=== PATIENT | male | born 1965 ===

== ENCOUNTER 2017-04-11 19:38 | Observation (INO) | payer MEDICAID ==
[2017-04-11 20:22] VITALS: RESP 20
[2017-04-11 21:33] LABS: BASO # 0.1 K/uL (0.0-0.2); BASO % 0.8 % (0.0-2.0); EOS # 0.3 K/uL (0.0-0.7); EOS % 4.8 % (0.0-4.0); HEMATOCRIT 41.4 % (35.0-51.0); LYMPH % 29.7 % (20.0-40.0); MEAN CELL VOLUME 88.4 fL (80.0-94.0); MEAN CORPUSCULAR HEMOGLOBIN 28.9 pg (27.0-31.0); MEAN CORPUSCULAR HGB CONC 32.7 g/dL (33.0-37.0); MEAN PLATELET VOLUME 7.4 fL (7.2-11.7); MONO # 0.5 K/uL (0.0-0.8); MONO % 7.9 % (0.0-10.0); RED CELL DISTRIBUTION WIDTH 12.8 % (11.5-14.5); WHITE BLOOD COUNT 6.6 K/uL (4.8-10.8)
--- NOTE | 2017-04-11 21:38 | C.PDOC ---
History Of Present Illness 52 y/o male sent to the emergency room by Dr. Saul to rule out CVA. Patient reports he has been progressively getting weaker to right side of body over the last week. Patient notes he is right hand dominant. Patient states he has not been "walking right". Denies headache, shortness of breath, chest pain, or other associated symptoms. Chief Complaint (Nursing): High Blood Pressure History Per: Patient History/Exam Limitations: no limitations Onset/Duration Of Symptoms: Days Current Symptoms Are (Timing): Worse Associated Symptoms: Focal Weakness. denies: Chest Pain, Dyspnea, Dizziness, Blurred Vision, Headache Recent travel outside of the [place]: No Past Medical History Reviewed: Historical Data, Nursing Documentation, Vital Signs Vital Signs: Last Vital Signs Temp 98.1 F 04/11/17 20:17 Pulse 78 04/11/17 20:17 Resp 20 04/11/17 20:17 BP 145/104 H 04/11/17 20:17 Pulse Ox 97 04/11/17 21:58 - Medical History PMH: Asthma, HTN Family History: States: Unknown Family Hx - Social History Hx Tobacco Use: No Hx Alcohol Use: No Hx Substance Use: No - Immunization History Hx Tetanus Toxoid Vaccination: No Hx Influenza Vaccination: No Hx Pneumococcal Vaccination: No Review Of Systems Except As Marked, All Systems Reviewed And Found Negative. Constitutional: Negative for: Fever, Chills Cardiovascular: Negative for: Chest Pain, Palpitations Respiratory: Negative for: Shortness of Breath Gastrointestinal: Negative for: Nausea, Vomiting Musculoskeletal: Negative for: Neck Pain Skin: Negative for: Rash Neurological: Positive for: Weakness (right upper and lower extremities ). Negative for: Numbness, Headache, Dizziness Physical Exam - Physical Exam Appears: Non-toxic, No Acute Distress Skin: Normal Color, Warm, Dry Head: Atraumatic, Normacephalic Chest: Symmetrical Cardiovascular: Rhythm Regular Respiratory: Normal Breath Sounds, No Rales, No Rhonchi, No Wheezing Gastrointestinal/Abdominal: Soft, No Tenderness Back: Normal Inspection Extremity: No Tenderness, Capillary Refill (< 2 sec. 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 Sensory deficits noted to right upper arm and right lower leg compared to opposite side. Normal DTR. ) Extremity: Bilateral: Atraumatic, Normal Color And Temperature Pulses: Left Radial: Normal, Right Radial: Normal Neurological/Psych: Oriented x3, Normal Speech, Normal Cognition, Normal Cranial Nerves ED Course And Treatment - Laboratory Results Result Diagrams: 04/11/17 21:29 04/11/17 21:29 ECG: Interpreted By Me ECG Rhythm: Sinus Rhythm ECG Interpretation: Normal Interpretation Of ECG: normal axis, normal intervals Rate From EC (BPM) O2 Sat by Pulse Oximetry: 97 (RA) Pulse Ox Interpretation: Normal - CT Scan/US CT Head Other Rad Studies (CT/US): Read By Radiologist, Radiology Report Reviewed CT/US Interpretation: IMPRESSION: No evidence of acute intracranial pathology. Medical Decision Making Medical Decision Making: Plan: * CT Head * EKG, CxR, bloodwork * Reassess Prior Visits: Notes and results from previous visits were reviewed Progress Notes: CT head negative for acute intracranial abnormality Disposition - Disposition Disposition Time: 22:00 Condition: GOOD - Clinical Impression Clinical Impression: Weakness - Scribe Statement The provider has reviewed the documentation as recorded by the Livieribxander Fairbanks All medical record entries made by the Anthony were at my direction and personally dictated by me. I have reviewed the chart and agree that the record accurately reflects my personal performance of the history, physical exam, medical decision making, and the department course for this patient. I have also personally directed, reviewed, and agree with the discharge instructions and disposition.
[2017-04-11 21:42] LABS: CHLORIDE 94 mmol/L (98-107)
[2017-04-11 21:43] LABS: POTASSIUM 4.7 mmol/L (3.6-5.2); SODIUM 135 mmol/L (132-148)
[2017-04-11 21:45] LABS: AST/SGOT 47 U/L (17-59); BILIRUBIN,TOTAL 0.9 mg/dL (0.2-1.3); CARBON DIOXIDE 32 mmol/L (22-30); GFR AFRICAN-AMERICAN > 60
[2017-04-11 21:46] LABS: ALB/GLOB RATIO 1.2 (1.0-2.1); ALKALINE PHOSPHATASE 50 U/L (38-126); ALT/SGPT 26 U/L (21-72); BLOOD UREA NITROGEN 21 mg/dL (9-20); CALCIUM 8.8 mg/dl (8.6-10.4); GLUCOSE,RANDOM 97 mg/dL (75-110); TOTAL PROTEIN 7.8 g/dL (6.3-8.3)
[2017-04-12] MEDS ORDERED: Albuterol HFA 90 mcg/actuation (8 g) INH PRN (00:13)
--- NOTE | 2017-04-12 07:22 | CP.PCM.CON ---
History of Present Illness - History of Present Illness History of Present Illness: 52 year old pt sent to er from Dr Saul office for weakness. In the hospital the pt stated felt generalized weakness no cp sob nausea. Was comfortable resting improved sx Review of Systems - Review of Systems Systems not reviewed;Unavailable: Acuity of Condition - Constitutional Constitutional: absent: Fever - EENT Eyes: absent: Change in Vision Ears: absent: Ear Discharge Nose/Mouth/Throat: absent: Nasal Discharge - Cardiovascular Cardiovascular: absent: Chest Pain - Genitourinary Genitourinary: absent: Dysuria - Integumentary Integumentary: absent: Bleeding Lesions - Neurological Neurological: absent: Syncope - Psychiatric Psychiatric: Anxiety - Endocrine Endocrine: absent: Excessive Sweating - Hematologic/Lymphatic Hematologic: absent: Easy Bruising Past Patient History - Past Medical History & Family History Past Medical History?: Yes - Past Social History Smoking Status: Never Smoked - CARDIAC Hx Cardiac Disorders: Yes Hx Hypertension: Yes - PULMONARY Hx Respiratory Disorders: Yes Hx Asthma: Yes - NEUROLOGICAL Hx Neurological Disorder: No - HEENT Hx HEENT Problems: No - RENAL Hx Chronic Kidney Disease: No - ENDOCRINE/METABOLIC Hx Endocrine Disorders: No - HEMATOLOGICAL/ONCOLOGICAL Hx Blood Disorders: No - INTEGUMENTARY Hx Dermatological Problems: No - MUSCULOSKELETAL/RHEUMATOLOGICAL Hx Falls: No - GASTROINTESTINAL Hx Gastrointestinal Disorders: No - GENITOURINARY/GYNECOLOGICAL Hx Genitourinary Disorders: No - PSYCHIATRIC Hx Substance Use: No - SURGICAL HISTORY Hx Surgeries: No - ANESTHESIA Hx Anesthesia: No Hx Anesthesia Reactions: No Hx Malignant Hyperthermia: No Has any member of the family had a problem w/ anesthesia?: No Meds Allergies/Adverse Reactions: Allergies Allergy/AdvReac Type Severity Reaction Status Date / Time No Known Allergies Allergy Unverified 12/05/14 20:16 - Medications Medications: Current Medications Albuterol (Ventolin Hfa 90 Mcg/Actuation (8 G)) 2 puff INH Q6 PRN PRN Reason: Wheezing Aspirin (Ecotrin) 81 mg PO DAILY [facility] Clopidogrel Bisulfate (Plavix) 75 mg PO DAILY [facility] Enoxaparin Sodium (Lovenox) 40 mg SC DAILY [facility] Pneumococcal Polyvalent Vaccine (Pneumovax 23 Vaccine) 0.5 ml IM .ONCE ONE Stop: 04/14/17 10:01 Rosuvastatin Calcium (Crestor) 10 mg PO HS [facility] Physical Exam - Constitutional Appears: Well - Head Exam Head Exam: ATRAUMATIC, NORMAL INSPECTION, NORMOCEPHALIC - ENT Exam ENT Exam: Mucous Membranes Moist - Respiratory Exam Respiratory Exam: Clear to Auscultation Bilateral - Cardiovascular Exam Cardiovascular Exam: REGULAR RHYTHM - GI/Abdominal Exam GI & Abdominal Exam: Normal Bowel Sounds - Extremities Exam Extremities exam: Positive for: normal inspection - Back Exam Back exam: NORMAL INSPECTION - Neurological Exam Neurological exam: Alert - Psychiatric Exam Psychiatric exam: Anxious - Skin Skin Exam: Warm Results - Vital Signs Recent Vital Signs: Last Vital Signs Temp 98.1 F 04/12/17 00:00 Pulse 64 04/12/17 00:00 Resp 20 04/12/17 00:53 BP 134/88 04/12/17 00:00 Pulse Ox 95 04/12/17 00:00 - Labs Result Diagrams: 04/11/17 21:29 04/11/17 21:29 Assessment & Plan (1) Weakness Assessment and Plan: Called to see pt for possible cardiac cause of weakness suggest echo ekg nsr Cardiac exam nl no cp follow up as outpt Status: Acute
--- NOTE | 2017-04-12 08:49 | RAD ---
PROCEDURE: CHEST RADIOGRAPH, 1 VIEW HISTORY: chest pain COMPARISON: None available. FINDINGS: LUNGS: Clear. PLEURA: No pneumothorax or pleural fluid seen. CARDIOVASCULAR: Normal. OSSEOUS STRUCTURES: No significant abnormalities. VISUALIZED UPPER ABDOMEN: Normal. OTHER FINDINGS: None. IMPRESSION: No active disease.
--- NOTE | 2017-04-12 09:27 | CT ---
PROCEDURE: CT HEAD WITHOUT CONTRAST. HISTORY: r/o bleed bed 8B COMPARISON: None available. TECHNIQUE: Axial computed tomography images were obtained through the head/brain without intravenous contrast. Radiation dose: Total exam DLP = 871.11 mGy-cm. This CT exam was performed using one or more of the following dose reduction techniques: Automated exposure control, adjustment of the mA and/or kV according to patient size, and/or use of iterative reconstruction technique. FINDINGS: HEMORRHAGE: No intracranial hemorrhage. BRAIN: No mass effect or edema. No atrophy or chronic microvascular ischemic changes. VENTRICLES: Unremarkable. No hydrocephalus. CALVARIUM: Unremarkable. PARANASAL SINUSES: Unremarkable as visualized. No significant inflammatory changes. MASTOID AIR CELLS: Unremarkable as visualized. No inflammatory changes. OTHER FINDINGS: None. IMPRESSION: Normal CT of the Head. Preliminary report was submitted by [facility] Rad[facility].
[2017-04-12] MEDS ORDERED: Enoxaparin 150 mg Syringe SC SCH (10:00)
[2017-04-12] MEDS: Enoxaparin 40 mg Syringe SC SCH ×2 (10:49→10:52)
[2017-04-12 12:36] LABS: FREE T4 0.99 ng/dL (0.78-2.19)
[2017-04-12 12:50] LABS: THYROID STIMULATING HORMONE 0.29 mIU/L (0.46-4.68)
--- NOTE | 2017-04-12 12:52 | MRI ---
PROCEDURE: MRI BRAIN WITHOUT CONTRAST HISTORY: stroke Vs mass COMPARISON: Comparison is made to the previous CT dated 04/11/2017 TECHNIQUE: Multiplanar, multisequence MR images of the brain were obtained without intravenous contrast enhancement. FINDINGS: HEMORRHAGE: None DWI: No evidence of an acute or early subacute infarction. BRAIN PARENCHYMA: No mass effect or edema. No atrophy or chronic microvascular ischemic changes. VENTRICLES: Unremarkable. No hydrocephalus. CRANIUM: Unremarkable. ORBITS: Grossly unremarkable. PARANASAL SINUSES/MASTOIDS: Clear VASCULAR SYSTEM: Skull base flow voids intact. OTHER FINDINGS: None. IMPRESSION: No evidence of acute or subacute infarct. No evidence of mass lesion mass effect or midline shift.
[2017-04-12 13:24] LABS: FOLATE 19.3 ng/mL
--- NOTE | 2017-04-12 14:39 | CP.PCM.HP ---
Past Patient History - Past Medical History & Family History Past Medical History?: Yes - Past Social History Smoking Status: Never Smoked - CARDIAC Hx Cardiac Disorders: Yes Hx Hypertension: Yes - PULMONARY Hx Respiratory Disorders: Yes Hx Asthma: Yes - NEUROLOGICAL Hx Neurological Disorder: No - HEENT Hx HEENT Problems: No - RENAL Hx Chronic Kidney Disease: No - ENDOCRINE/METABOLIC Hx Endocrine Disorders: No - HEMATOLOGICAL/ONCOLOGICAL Hx Blood Disorders: No - INTEGUMENTARY Hx Dermatological Problems: No - MUSCULOSKELETAL/RHEUMATOLOGICAL Hx Falls: No - GASTROINTESTINAL Hx Gastrointestinal Disorders: No - GENITOURINARY/GYNECOLOGICAL Hx Genitourinary Disorders: No - PSYCHIATRIC Hx Substance Use: No - SURGICAL HISTORY Hx Surgeries: No - ANESTHESIA Hx Anesthesia: No Hx Anesthesia Reactions: No Hx Malignant Hyperthermia: No Has any member of the family had a problem w/ anesthesia?: No Meds Allergies/Adverse Reactions: Allergies Allergy/AdvReac Type Severity Reaction Status Date / Time No Known Allergies Allergy Unverified 12/05/14 20:16 Physical Exam - Constitutional Appears: Well - Head Exam Head Exam: ATRAUMATIC, NORMAL INSPECTION, NORMOCEPHALIC - Eye Exam Eye Exam: EOMI, Normal appearance, PERRL Pupil Exam: NORMAL ACCOMODATION, PERRL - ENT Exam ENT Exam: Mucous Membranes Moist, Normal Exam - Neck Exam Neck exam: Positive for: Normal Inspection - Respiratory Exam Respiratory Exam: Decreased Breath Sounds - Cardiovascular Exam Cardiovascular Exam: REGULAR RHYTHM, +S1, +S2 - GI/Abdominal Exam GI & Abdominal Exam: Diminished Bowel Sounds, Soft - Rectal Exam Rectal Exam: Deferred Results - Vital Signs Recent Vital Signs: Last Vital Signs Temp 98.5 F 04/12/17 08:01 Pulse 60 04/12/17 08:01 Resp 20 04/12/17 08:01 BP 147/88 04/12/17 08:01 Pulse Ox 96 04/12/17 08:01 - Labs Result Diagrams: 04/11/17 21:29 04/11/17 21:29 Assessment & Plan - Assessment and Plan (Free Text) Plan: ct chest mri no acute finding carotid doppler pending protonix lvoenox cardio neuro aspirin alaina same falland seizure precaution
--- NOTE | 2017-04-12 19:29 | CARD ---
APPROVED REPORT EXAM: Two-dimensional and M-mode echocardiogram with Doppler and color Doppler. Other Information Quality : GoodRhythm : NSR INDICATION CARDIOEMBOLIC SOURCE, WEAKNESS RISK FACTORS Hypertension M-Mode DIMENSIONS RVDd2.25 (2.1-3.2cm)Left Atrium (MM)3.42 (2.5-4.0cm) IVSd1.18 (0.7-1.1cm)Aortic Root3.19 (2.2-3.7cm) LVDd4.77 (4.0-5.6cm)Aortic Cusp Exc.1.43 (1.5-2.0cm) PWd1.18 (0.7-1.1cm)FS (%) 29 % LVDs3.37 (2.0-3.8cm)LVEF (%)56 (>50%) Mitral Valve MV E Tazeotwl57.1cm/sMV A Miwzlrsw77.7cm/sE/A ratio1.0 TDI E/Lateral E'0.0E/Medial E'0.0 Tricuspid Valve TR Peak Eegqtdmb997jt/sTR Peak Gr.50zwXoUQDD24hmRt LEFT VENTRICLE The left ventricle is normal size. There is normal left ventricular wall thickness. The left ventricular function is normal. The left ventricular ejection fraction is within the normal range. Abouy60%. No regional wall motion abnormalities noted. The left ventricular diastolic function is normal. No left ventricle thrombus noted on this study. There is no ventricular septal defect visualized. There is no left ventricular aneurysm. There is no mass noted in the left ventricle. RIGHT VENTRICLE The right ventricle is normal size. There is normal right ventricular wall thickness. The right ventricular systolic function is normal. ATRIA The left atrium size is normal. The right atrium size is normal. The interatrial septum is intact with no evidence for an atrial septal defect. AORTIC VALVE The aortic valve is normal in structure and function. No aortic regurgitation is present. There is no aortic valvular stenosis. There is no aortic valvular vegetation. MITRAL VALVE The mitral valve is normal in structure and function. There is no evidence of mitral valve prolapse. There is no mitral valve stenosis. There is no mitral valve regurgitation noted. TRICUSPID VALVE The tricuspid valve is normal in structure and function. There is no tricuspid valve regurgitation noted. There is no tricuspid valve prolapse or vegetation. There is no tricuspid valve stenosis. PULMONIC VALVE The pulmonary valve is normal in structure and function. There is no pulmonic valvular regurgitation. There is no pulmonic valvular stenosis. GREAT VESSELS The aortic root is normal in size. The ascending aorta is normal in size. The pulmonary artery is normal. The IVC is normal in size and collapses >50% with inspiration. PERICARDIAL EFFUSION The pericardium appears normal. There is no pleural effusion. <Conclusion> Normal Study
[2017-04-13 00:49] VITALS: TEMP 98.7
--- NOTE | 2017-04-13 01:49 | CON ---
DATE: 04/12/2017 ATTENDING PHYSICIAN: Dr. Jenaro Pal. The patient is in room #351, bed B. REASON FOR THE CONSULTATION: Right-sided weakness. CHIEF COMPLAINT: The patient was brought into [facility] with a history of 7 days of right-sided pain and weakness. From a neurological point of view, I was called in to evaluate him for further management. HISTORY OF PRESENT ILLNESS: The patient is a 52-year-old right-handed male presenting with about 7 days' history of right arm pain. Inability to move his arm well due to the pain. The pain also associated with some weakness of the arm as well as his leg. No preceding neck trauma or neck injuries. No history of headache. No history of visual or bulbar dysfunction. No similar episodes happened in the past. PAST MEDICAL HISTORY: Unremarkable. ALLERGIES: No known allergies. REVIEW OF SYSTEMS: Per H and P. MEDICATIONS: Crestor, aspirin, Lovenox, Plavix. PHYSICAL EXAMINATION: VITAL SIGNS: Blood pressure 147/80, mean arterial pressure of 107, respiratory rate 16, temperature afebrile. NECK: Supple. No carotid bruit. HEART: Sounds are regular. CHEST: Fair air entry. EXTREMITIES: No edema in legs. NEUROLOGIC EXAMINATION: MENTAL STATUS EXAMINATION: He is awake, alert, oriented to person, place, and time. Speech is clear. Naming, repetition, fluency, comprehension all within normal. CRANIAL NERVE EXAMINATION: Visual field intact, pupil reactive to light. Extraocular movements are normal. No nystagmus, no facial sensory deficit, no facial asymmetry. Hearing is normal. Tongue is midline. Good gag. MOTOR: On outstretched hand with eyes closed, no drift noted. Power is symmetric on either side. DEEP TENDON REFLEXES: Biceps, brachioradialis, triceps 1+, both knees are 2+, both ankles are 1+. Plantars are downgoing. SENSORY: No cortical sensory loss, no sensory deficit in a dermatomal pattern on his affected side. DERMATOLOGY: Examination of the skin, he has a cellulitis over his right brachioradialis region with sign of inflammation noted. COORDINATION: Xzhduf-eohl-hglnev test is intact. Gait is normal. CONCLUSION: 1. Upon reviewing his history and neurological examination, the patient is presenting with right-sided weakness with pain in his right arm. The current examination does not show any long tract sign. Considering his subjective symptoms, cerebral ischemic processes should be ruled out. 2. The patient also suffering from cellulitis. This also related to his arm pain from his untreated cellulitis. WORKUP: WBC 6.6, hemoglobin 13.6, hematocrit 41.4, Sodium 135, potassium 4.7 , chloride 94, bicarbonate 32, BUN 21, creatinine 0.7. Liver functions normal. Cholesterol 221, LDL 124, HDL 49. Homocystine 6.0. CT of the head reviewed by me, no acute pathology noted. Carotid Doppler is also done and pending. RECOMMENDATIONS: 1. Continue aspirin and Plavix for now. If the MRI brain is negative for ischemic process, the Plavix can be discontinued. 2. The patient should have a proper antibiotic for his cellulitis in his arm. If the patient is medically stable for the next 24-hour period, the patient can be discharged and should follow up as outpatient with me. Marcos Geiger MD cc: [id number] TT: 04/12/2017 15:59:44 Confirmation # [id number] Dictation # [id number] paco MTDD
--- NOTE | 2017-04-13 07:13 | CP.PCM.PN ---
Subjective - Date & Time of Evaluation Date of Evaluation: 04/13/17 Time of Evaluation: 07:00 - Subjective Subjective: Pt no cp tolerating po no events Objective - Vital Signs/Intake and Output Vital Signs (last 24 hours): Temp Pulse Resp BP Pulse Ox 98.7 F 71 20 142/87 97 04/13/17 00:00 04/13/17 00:00 04/13/17 00:00 04/13/17 00:00 04/13/17 00:00 Intake and Output: 04/13/17 04/13/17 06:59 18:59 Intake Total 580 Balance 580 - Medications Medications: Current Medications Albuterol (Ventolin Hfa 90 Mcg/Actuation (8 G)) 2 puff INH Q6 PRN PRN Reason: Wheezing Aspirin (Ecotrin) 81 mg PO DAILY [facility] Last Admin: 04/12/17 10:49 Dose: 81 mg Clopidogrel Bisulfate (Plavix) 75 mg PO DAILY [facility] Last Admin: 04/12/17 10:49 Dose: 75 mg Enoxaparin Sodium (Lovenox) 40 mg SC DAILY [facility] Last Admin: 04/12/17 10:52 Dose: Not Given Pneumococcal Polyvalent Vaccine (Pneumovax 23 Vaccine) 0.5 ml IM .ONCE ONE Stop: 04/14/17 10:01 Rosuvastatin Calcium (Crestor) 10 mg PO [facility] Last Admin: 04/12/17 21:44 Dose: 10 mg - Constitutional Appears: Well - Head Exam Head Exam: ATRAUMATIC - Eye Exam Eye Exam: Normal appearance - ENT Exam ENT Exam: Mucous Membranes Moist - Respiratory Exam Respiratory Exam: Clear to Ausculation Bilateral - Cardiovascular Exam Cardiovascular Exam: REGULAR RHYTHM - GI/Abdominal Exam GI & Abdominal Exam: Normal Bowel Sounds - Exam External exam: NORMAL EXTERNAL EXAM - Extremities Exam Extremities Exam: Normal Inspection - Neurological Exam Neurological Exam: Awake - Psychiatric Exam Psychiatric exam: Anxious - Skin Skin Exam: Warm Assessment and Plan (1) Weakness Assessment & Plan: echo nl nl ekg follow up as outpt feeeling better Status: Acute
[2017-04-13 08:09] VITALS: BP 139/78; PULSE 69; O2SAT 99
[2017-04-13] MEDS: Enoxaparin 40 mg Syringe SC SCH (10:17)
[2017-04-14] MEDS ORDERED: Pneumococcal 23-Valent Vaccine IM ONE (10:00)
--- NOTE | 2017-04-14 10:15 | VASCLAB ---
PROCEDURE: HISTORY: stenosis COMPARISON: None available. TECHNIQUE: Grayscale and duplex Doppler evaluation of the cervical carotid and vertebral arteries were performed. The common carotid, carotid bifurcations and cervical Internal Carotid Artery (ICA) and proximal External Carotid Artery (ECA) were evaluated. The vertebral arteries were evaluated for gross patency and flow direction. Report prepared by Tee Alexis, BS, RVT FINDINGS: RIGHT CAROTID ARTERIES: 1. Common Carotid Artery: No significant focal plaque formation of the right common carotid artery. Maximum Peak Systolic velocity: 85 cm/sec: End-diastolic velocity 21 cm/sec. 2. Carotid Bifurcation: plaque formation. Maximum Peak Systolic velocity: 77 cm/sec: End-diastolic velocity 16 cm/sec. 3. Internal Carotid Artery: Plaque description: 3.1. Proximal Segment: Peak systolic velocity 78 cm/sec: End-diastolic velocity 27 cm/sec - % stenosis 0-15% 3.2. Middle Segment: Peak systolic velocity 75 cm/sec: End-diastolic velocity 27 cm/sec - % stenosis 0-15% 3.3. Distal Segment: Peak systolic velocity 77 cm/sec: End-diastolic velocity 16 cm/sec - % stenosis 0-15% 4. External Carotid Artery: No significant focal plaque formation. Peak systolic velocity 132 cm/sec 5. ICA/CCA Ratio: 0.9 LEFT CAROTID ARTERIES: 1. Common Carotid Artery: No significant focal plaque formation of the left common carotid artery. Maximum Peak Systolic velocity: 82 cm/sec: End-diastolic velocity 17 cm/sec. 2. Carotid Bifurcation: plaque formation. Maximum Peak Systolic velocity: 87 cm/sec: End-diastolic velocity 18 cm/sec. 3. Internal Carotid Artery: Plaque description: 3.1. Proximal Segment: Peak systolic velocity 75 cm/sec: End-diastolic velocity 28 cm/sec - % stenosis 0-15% 3.2. Middle Segment: Peak systolic velocity 77 cm/sec: End-diastolic velocity 23 cm/sec - % stenosis 0-15% 3.3. Distal Segment: Peak systolic velocity 67 cm/sec: End-diastolic velocity 27 cm/sec - % stenosis 0-15% 4. External Carotid Artery: No significant focal plaque formation. Peak systolic velocity 106 cm/sec 5. ICA/CCA Ratio: 1.1 VERTEBRAL ARTERIES: 1. Right Vertebral Artery: The right vertebral artery flow direction is antegrade. 2. Left Vertebral Artery: The left vertebral artery flow direction is antegrade. OTHER FINDINGS: 1. Right Brachial Blood pressure: 136 mmHg. 2. Left Brachial Blood pressure: 130 mmHg. IMPRESSION: RIGHT: Duplex scan does not suggest hemodynamically significant stenosis of the right extracranial carotid arteries. LEFT: Duplex scan does not suggest hemodynamically significant stenosis of the left extracranial carotid arteries.
--- NOTE | 2017-04-15 18:50 | CARD ---
APPROVED REPORT EKG Measurement Heart [id number] <Conclusion> Normal sinus rhythm Normal ECG
== END 2017-04-13 15:05 | disposition left against medical advice (07) ==
LOC: C.ER 19:38 → C.9E 22:35 → C.3T 22:57 → INTOOBSV 04-12 13:16 → OBSVTOIN 04-12 13:16
PROVIDERS: ADMIT Internal Medicine Nephrology; ATTEND Internal Medicine Nephrology
DX: L03.113 Cellulitis of right upper limb (principal); R53.1 Weakness; I10 Essential (primary) hypertension; J45.909 Unspecified asthma, uncomplicated; R07.9 Chest pain, unspecified
CPT/HCPCS: 36415; 70450; 70551; 71010; 80053; 80061; 82607; 82746; 83036; 83090; 84146; 84439; 84443; 84484; 85025; 86592; 93005; 93306; 93880; 99285; G0378

== ENCOUNTER 2017-05-28 15:18 | Emergency (ER) | payer MEDICAID ==
[2017-05-28 15:23] VITALS: PULSE 75; RESP 18; TEMP 98.6; O2SAT 98
--- NOTE | 2017-05-28 16:11 | C.PDOC ---
History Of Present Illness A 52 y/o M c/o a small abscess to the right axilla and an abscess to the medial right forearm for a couple of days. Denies fever, chills, discharge, nausea, vomiting, or any other complaints. Pt is not up to date with tetanus shot. Time Seen by Provider: 05/28/17 15:33 Chief Complaint (Nursing): Abnormal Skin Integrity History Per: Patient History/Exam Limitations: no limitations Onset/Duration Of Symptoms: Days Current Symptoms Are (Timing): Still Present Severity: Mild Recent travel outside of the [place]: No Additional History Per: Patient Past Medical History Reviewed: Historical Data, Nursing Documentation, Vital Signs Vital Signs: Last Vital Signs Temp 98.6 F 05/28/17 15:20 Pulse 75 05/28/17 15:20 Resp 18 05/28/17 16:20 BP Pulse Ox 98 05/28/17 18:33 - Medical History PMH: Asthma, HTN Denies: Chronic Kidney Disease Family History: States: Unknown Family Hx - Social History Hx Tobacco Use: No Hx Alcohol Use: No Hx Substance Use: No - Immunization History Hx Tetanus Toxoid Vaccination: No Hx Influenza Vaccination: No Hx Pneumococcal Vaccination: No Review Of Systems Except As Marked, All Systems Reviewed And Found Negative. Constitutional: Negative for: Fever, Chills Gastrointestinal: Negative for: Nausea, Vomiting Skin: Positive for: Other (Abscess to the right axilla and medial right ofrearm. No skin discharge.) Physical Exam - Physical Exam Appears: Non-toxic, No Acute Distress Skin: Warm, Dry, Other (1x1 cm skin colored, mildly tender, indurated, non- flucuant abscess to the right axilla with no surrounding cellulitis.) Head: Atraumatic, Normacephalic Extremity: Normal ROM, Capillary Refill (<2secs), Other (2x3 cm erythematous, tender, indurated, non-fluctuent abscess with mild surrounding cellulitis to the right medial forearm.) Extremity: Bilateral: Normal Color And Temperature Pulses: Left Radial: Normal, Right Radial: Normal Neurological/Psych: Oriented x3, Normal Speech, Normal Cognition, Normal Motor, Normal Sensation, Other (NO focal deficit) ED Course And Treatment O2 Sat by Pulse Oximetry: 98 (RA) Pulse Ox Interpretation: Normal Medical Decision Making Medical Decision Makin yo M presents with abscess to the R forearm and R axilla. Plans: Pt refuses tetanus vaccination offered. Benefits explained, but still refused Considering findings on exam, decision made at this time to not perform an I&D and was advised to finish antibiotics, apply warm compresses, follow up with PMD or clinic, and given referral to general surgeon. Disposition Counseled Patient/Family Regarding: Diagnosis, Need For Followup, Rx Given - Disposition Referrals: Saravanan Aiken MD [Staff Provider] - [facility] [Outside] Disposition: HOME/ ROUTINE Disposition Time: 16:10 Condition: STABLE Prescriptions: Cephalexin [Keflex] 500 mg PO Q6 #28 capsule Naproxen 500 mg PO BID #30 tab Sulfamethoxazole/Trimethoprim [Bactrim DS 800 mg-160 mg] 2 tab PO BID #28 tab Instructions: Abscess (ED) Forms: Work Excuse Print Language: UKRAINIAN - Clinical Impression Clinical Impression: Abscess - PA / PHYSICIAN [facility] / Resident Statement MD/DO has reviewed & agrees with the documentation as recorded. - Scribe Statement The provider has reviewed the documentation as recorded by the Scribxander mcclellan All medical record entries made by the Anthony were at my direction and personally dictated by me. I have reviewed the chart and agree that the record accurately reflects my personal performance of the history, physical exam, medical decision making, and the department course for this patient. I have also personally directed, reviewed, and agree with the discharge instructions and disposition.
== END 2017-05-28 16:20 | disposition home or self-care (01) ==
LOC: C.ER 15:18
DX: L02.411 Cutaneous abscess of right axilla (principal); L02.413 Cutaneous abscess of right upper limb

== ENCOUNTER 2017-09-05 13:36 | Emergency (ER) | payer MEDICAID, OTHER ==
[2017-09-05 14:02] VITALS: BP 137/93; PULSE 71; RESP 18; TEMP 98.6; O2SAT 99
[2017-09-05] MEDS ORDERED: Tmp-Smz 800 mg-160 mg DS Tab PO STA (14:29)
--- NOTE | 2017-09-05 14:37 | C.PDOC ---
Time Seen by Provider: 09/05/17 14:07 Chief Complaint (Nursing): Abnormal Skin Integrity History Per: Patient History/Exam Limitations: no limitations Onset/Duration Of Symptoms: Days (x4) Current Symptoms Are (Timing): Still Present Location Of Injury: Left: Knee Quality Of Symptoms: Painful Pain Scale Rating Of: 7 Past Medical History Reviewed: Historical Data, Nursing Documentation, Vital Signs Vital Signs: Last Vital Signs Temp 98.6 F 09/05/17 13:59 Pulse 71 09/05/17 13:59 Resp 18 09/05/17 13:59 BP 137/93 H 09/05/17 13:59 Pulse Ox 99 09/05/17 14:44 - Medical History PMH: Asthma, HTN Denies: Chronic Kidney Disease Family History: States: Unknown Family Hx - Social History Hx Tobacco Use: No Hx Alcohol Use: No Hx Substance Use: No - Immunization History Hx Tetanus Toxoid Vaccination: No Hx Influenza Vaccination: No Hx Pneumococcal Vaccination: No Review Of Systems Except As Marked, All Systems Reviewed And Found Negative. Constitutional: Negative for: Fever, Chills Musculoskeletal: Positive for: Leg Pain (left knee area swollen and red. Discharge of yellow pus) Physical Exam - Physical Exam Appears: Well Skin: Normal Color, Warm, Dry Eye(s): bilateral: Normal Inspection Neck: Normal, Normal ROM, Supple Respiratory: Normal Breath Sounds Extremity: Tenderness (with induration above the left knee), Swelling (3cm x 3cm above the left knee and erythema to left knee) Neurological/Psych: Normal Speech, Normal Motor, Normal Sensation ED Course And Treatment O2 Sat by Pulse Oximetry: 99 (RA) Pulse Ox Interpretation: Normal Disposition - Disposition Forms: [employer] (Icelandic) - Scribe Statement The provider has reviewed the documentation as recorded by the Scribxander Vieira All medical record entries made by the Scribe were at my direction and personally dictated by me. I have reviewed the chart and agree that the record accurately reflects my personal performance of the history, physical exam, medical decision making, and the department course for this patient. I have also personally directed, reviewed, and agree with the discharge instructions and disposition.
--- NOTE | 2017-09-05 14:49 | C.PDOC ---
History Of Present Illness Patient is a 52 year old male who presents to the emergency department complaining of pain to the left knee associated with redness and swelling onset 4 days ago. He reports last night it got swollen however it popped and drained a lot of yellow pus. Patient came in today because it has become too painful. Patient denies any fever or chills. No further medical complaints. PMD: None provided. Time Seen by Provider: 09/05/17 14:07 Chief Complaint (Nursing): Abnormal Skin Integrity History Per: Patient History/Exam Limitations: no limitations Onset/Duration Of Symptoms: Days (x4) Current Symptoms Are (Timing): Still Present Location Of Injury: Left: Knee Quality Of Symptoms: Painful Past Medical History Reviewed: Historical Data, Nursing Documentation, Vital Signs Vital Signs: Last Vital Signs Temp 98.6 F 09/05/17 13:59 Pulse 71 09/05/17 13:59 Resp 18 09/05/17 13:59 BP 137/93 H 09/05/17 13:59 Pulse Ox 99 09/05/17 14:50 - Medical History PMH: Asthma, HTN Denies: Chronic Kidney Disease Family History: States: Unknown Family Hx - Social History Hx Tobacco Use: No Hx Alcohol Use: No Hx Substance Use: No - Immunization History Hx Tetanus Toxoid Vaccination: No Hx Influenza Vaccination: No Hx Pneumococcal Vaccination: No Review Of Systems Except As Marked, All Systems Reviewed And Found Negative. Constitutional: Negative for: Fever, Chills Musculoskeletal: Positive for: Leg Pain (left knee with swelling and redness) Physical Exam - Physical Exam Appears: No Acute Distress Skin: Normal Color, Warm, Dry Eye(s): bilateral: Normal Inspection Neck: Normal, Normal ROM, Supple Respiratory: Normal Breath Sounds Extremity: Normal ROM, Tenderness (with induration above the left knee), Swelling (3cm x 3cm above the left knee and erythema) Neurological/Psych: Normal Speech, Normal Motor, Normal Sensation ED Course And Treatment O2 Sat by Pulse Oximetry: 99 (RA) Pulse Ox Interpretation: Normal Disposition - Disposition Referrals: [facility] [Outside] Disposition: HOME/ ROUTINE Disposition Time: 15:28 Condition: GOOD Additional Instructions: Follow up with the medical doctor/clinic within 1-2 days. Return if worsened. Prescriptions: Cephalexin [Keflex] 500 mg PO BID #19 capsule Ibuprofen [Motrin] 600 mg PO TID #21 tab Sulfamethoxazole/Trimethoprim [Bactrim DS 800 mg-160 mg] 1 tab PO BID #19 tab Instructions: Abscess (GEN) Forms: [facility] (American) - Clinical Impression Clinical Impression: Abscess - Scribe Statement The provider has reviewed the documentation as recorded by the Scribe Marquis Vieira All medical record entries made by the Livieribe were at my direction and personally dictated by me. I have reviewed the chart and agree that the record accurately reflects my personal performance of the history, physical exam, medical decision making, and the department course for this patient. I have also personally directed, reviewed, and agree with the discharge instructions and disposition.
[2017-09-05] MEDS ORDERED: Tmp-Smz 800 mg-160 mg DS Tab ONE (14:54)
== END 2017-09-05 15:35 | disposition home or self-care (01) ==
LOC: C.ER 13:36
DX: L02.416 Cutaneous abscess of left lower limb (principal)